=== PATIENT | female | born 1945 | race Hispanic/Latino ===

== ENCOUNTER 2018-09-28 05:59 | Emergency (ER) | payer OTHER ==
[~2018-09-28 05:59] MED LIST: AEC81 PO; CITA-107 PO; LEVO500T89 PO; LIDO76.5 TP; LISI10TA7 PO; vit b12 PO; vit d3 PO
[2018-09-28 06:16] LABS: BASOPHILS % (AUTO) 0.8 % (0.0-5.0); EOSINOPHILS % (AUTO) 2.6 % (0.0-8.0); HEMATOCRIT 36.6 % (36-48); LYMPHOCYTES % (AUTO) 21.7 % (21.0-51.0); MEAN CORPUSCULAR HEMOGLOBIN 28.1 pg (27.0-33.0); MEAN CORPUSCULAR HGB CONC 32.6 g/dL (32.0-36.0); MEAN CORPUSCULAR VOLUME 86.1 fL (79-99); MONOCYTES % (AUTO) 6.4 % (3.0-13.0); NEUTROPHILS % (AUTO) 68.5 % (40.0-77.0); NUCLEATED RED BLOOD CELLS 0.1 % (0.0-0.19); PLATELET COUNT (AUTO) 193 K/uL (130-400); RED BLOOD CELL COUNT(AUTO) 4.25 MIL/uL (4.00-5.50); RED CELL DISTRIBUTION WIDTH 14.3 % (11.0-15.5); WHITE BLOOD COUNT (AUTO) 8.4 K/uL (4.8-10.8)
[2018-09-28 06:32] LABS: INR 0.95 (0.85-1.15); PARTIAL THROMBOPLASTIN TIME 32.7 SEC (26.3-35.5)
[2018-09-28] MEDS ORDERED: ONDANSETRON HCL 4 MG/2 ML VIAL ONE (06:39)
[2018-09-28 06:47] LABS: POTASSIUM 3.6 mmol/L (3.5-5.1)
[2018-09-28 07:03] LABS: ALBUMIN 3.6 g/dL (3.5-5.0); BILIRUBIN,TOTAL 0.8 mg/dL (0.2-1.0); TOTAL PROTEIN, SERUM 7.6 g/dL (6.0-8.3)
[2018-09-28] MEDS ORDERED: SUCRALFATE 1 GM TABLET ONE (07:12)
[2018-09-28] MEDS ORDERED: PANTOPRAZOLE 40 MG/VIAL IVP ONE (07:20)
== END 2018-09-28 09:31 | disposition home or self-care (01) ==
LOC: EDH 05:59
DX: K29.00 Acute gastritis without bleeding (principal); Z90.710 Acquired absence of both cervix and uterus; Z98.890 Other specified postprocedural states; Z88.5 Allergy status to narcotic agent; Z88.2 Allergy status to sulfonamides
CPT/HCPCS: 36415; 71045; 80053; 82550; 83690; 83874; 84484 ×2; 85025; 85610; 85730; 93005 ×2; 96374; 96375; 99284; C9113; J2405

== ENCOUNTER → 2019-03-03 | Outpatient (CLI) | payer OTHER | END | disposition home or self-care (01) | LOC: RAH 11:02 | PROVIDERS: ATTEND Urology | DX: N20.0 Calculus of kidney (principal); N28.89 Other specified disorders of kidney and ureter | CPT/HCPCS: 76770 ==

== ENCOUNTER → 2019-03-07 | Outpatient (CLI) | payer OTHER | END | disposition home or self-care (01) | LOC: RAH 10:50 | PROVIDERS: ATTEND Urology | DX: N20.0 Calculus of kidney (principal); K43.9 Ventral hernia without obstruction or gangrene; K57.30 Diverticulosis of large intestine without perforation or abscess without bleeding; N26.1 Atrophy of kidney (terminal); Z90.49 Acquired absence of other specified parts of digestive tract | CPT/HCPCS: 74176 ==

== ENCOUNTER → 2019-12-26 | Outpatient (CLI) | payer OTHER | LOC: RAH 11:03 | PROVIDERS: ATTEND Internal Medicine | DX: M65.811 Other synovitis and tenosynovitis, right shoulder (principal) | CPT/HCPCS: 73030; 73060 ==